=== PATIENT | female | born 1945 | race Caucasian/White ===

== ENCOUNTER 2017-01-09 17:53 | Emergency (ER) | payer MEDICARE ==
[2017-01-09 18:27] VITALS: BP 142/81
--- NOTE | 2017-01-09 19:24 | UC ---
Complaint Female HPI - HPI Summary HPI Summary: ONSET OF DYSURIA, FREQUENCY AND URINARY PRESSURE TODAY AROUND 11AM. NO FEVER, NAUSEA OR BACK PAIN. - History Of Current Complaint Chief Complaint: UCGU Stated Complaint: FREQ URINATING,BURNING Time Seen by Provider: 01/09/17 18:56 Hx Obtained From: Patient Onset/Duration: Sudden Onset, Lasting Hours, Still Present Severity Initially: Moderate Severity Currently: Moderate Pain Intensity: 0 Pain Scale Used: 0-10 Numeric Character: Burning Aggravating Factor(s): Urination Alleviating Factor(s): Nothing Associated Signs And Symptoms: Negative: Fever, Back Pain, Nausea, Genital Swelling - Allergies/Home Medications Allergies/Adverse Reactions: Allergies Allergy/AdvReac Type Severity Reaction Status Date / Time Penicillins Allergy Nausea Verified 01/09/17 18:29 Epinephrine AdvReac Tachycardia Verified 01/09/17 18:29 PMH/Surg Hx/FS Hx/Imm Hx Cardiovascular History: Hypertension - Surgical History Surgical History: Yes Surgery Procedure, Year, and Place: right side lumpectomy- taking femara for this. bilat cataracts removed - lens implants. - Family History Known Family History: Positive: None - Social History Alcohol Use: Rare Substance Use Type: None Smoking Status (MU): Former Smoker Type: Cigarettes When Did the Patient Quit Smoking/Using Tobacco: 35 years ago - Immunization History Most Recent Influenza Vaccination: 2014/2015 Review of Systems Constitutional: Negative Respiratory: Negative Cardiovascular: Negative Gastrointestinal: Negative Genitourinary: Dysuria, Frequency, Urgency All Other Systems Reviewed And Are Negative: Yes Physical Exam Triage Information Reviewed: Yes Appearance: Well-Appearing, No Pain Distress, Well-Nourished Vital Signs: Initial Vital Signs Temp 98.6 F 01/09/17 18:24 Pulse 71 01/09/17 18:24 Resp 18 01/09/17 18:24 BP 142/81 01/09/17 18:24 Pulse Ox 99 01/09/17 18:24 Vital Signs Reviewed: Yes Eyes: Positive: Conjunctiva Clear ENT: Positive: Hearing grossly normal Neck: Positive: Supple Respiratory: Positive: No respiratory distress, No accessory muscle use Cardiovascular: Positive: Pulses Normal Abdomen Description: Positive: Nontender, Soft. Negative: CVA Tenderness (R), CVA Tenderness (L), Distended, Guarding Musculoskeletal: Positive: No Edema Neurological: Positive: Alert Psychological: Positive: Age Appropriate Behavior Skin: Negative: rashes Diagnostics - Laboratory Diagnostic Studies Completed/Ordered: URINE DIP SP. GR. 1.010, 3+ LEUKS, POS NITRITES, TRACE BLOOD Complaint Female Dx - Differential Dx/Diagnosis Provider Diagnoses: UTI Discharge - Discharge Plan Condition: Stable Disposition: HOME Prescriptions: Sulfamethox/Trimethoprim DS* [Bactrim DS 800/160 TAB*] 1 tab PO BID #9 tab Patient Education Materials: Urinary Tract Infection in Women (ED) Referrals: Radha Solomon MD [Primary Care Provider] - If Needed
[2017-01-09] MEDS ORDERED: Sulfamethox/Trimethoprim DS 800/160* TAB PO ONE (19:29)
== END 2017-01-09 19:40 | disposition home or self-care (01) ==
LOC: UCEAST 17:53
DX: N39.0 Urinary tract infection, site not specified (principal); Z87.891 Personal history of nicotine dependence
CPT/HCPCS: 81003; 87077; 87086; 87186; 99212; A9270-GY; G0463